=== PATIENT | male | born 1980 ===

== ENCOUNTER 2020-09-30 08:59 | Outpatient (CLI) | payer OTHER | END 2020-09-30 09:00 | disposition home or self-care (01) | LOC: CSHULT 08:59 | PROVIDERS: ATTEND Internal Medicine | DX: R10.12 Left upper quadrant pain (principal); R16.1 Splenomegaly, not elsewhere classified; D17.1 Benign lipomatous neoplasm of skin and subcutaneous tissue of trunk | CPT/HCPCS: 93975 ==